=== PATIENT | female | born 1960 | race Caucasian/White ===

== ENCOUNTER 2017-03-10 16:14 | Emergency (ER) | payer OTHER ==
[~2017-03-10] VITALS: Ht 165.1 cm; Wt 73.8 kg
[2017-03-10] MEDS ORDERED: valACYclovir HCL 500 MG TAB PO ONE (17:30)
[2017-03-10] MEDS ORDERED: VALT1TAB PO (17:30)
[2017-03-10 18:12] VITALS: BP 147/93
== END 2017-03-10 18:15 | disposition home or self-care (01) ==
LOC: M ED 16:14
DX: Z76.0 Encounter for issue of repeat prescription (principal); A60.09 Herpesviral infection of other urogenital tract